=== PATIENT | female | born 1965 | race Caucasian/White ===

== ENCOUNTER → 2017-07-17 | Outpatient (CLI) | payer MEDICARE, OTHER ==
[~2017-07-17] MED LIST: ALB6.7R INH; BACL-1 PO; BACL-51 PO; BLOO-1037 MC; BLOO-960 MC; BUPR-472 PO; CEPH500C24 PO; CHOL100058 PO; CYAN25007 SL; DIAZ-311 PO; DILAUDID PUMP; FURO20TA19 PO; HYDR-5517 PO; HYDR2TAB74 PO; LANC-608 MC; LISI-362 PO; METF-410 PO; METF10002 PO; OMEP40CA48 PO; ONDA4TAB PO; ROSU20TA13 PO; SIMV-49 PO; SITA50TA6 PO; SPIR25TA76 PO; SULF-198 PO; URSO500T7 PO
[2017-07-17 14:11] LABS: PLATELET COUNT, AUTOMATED 180 K/uL (150-450)
[2017-07-17 14:21] LABS: INR 1.07
== END ==
LOC: LAB 13:25
PROVIDERS: ATTEND Emergency Medicine
DX: K74.60 Unspecified cirrhosis of liver (principal); K76.9 Liver disease, unspecified
CPT/HCPCS: 36415; 82040; 82247; 82310; 82374; 82435; 82565; 82784; 82947; 83516; 84075; 84132; 84155; 84295; 84450; 84460; 84520; 85025; 85610; 86301

== ENCOUNTER → 2017-07-23 | Outpatient (CLI) | payer MEDICARE, OTHER | LOC: US 00:39 | PROVIDERS: ATTEND Emergency Medicine | DX: Z02.9 Encounter for administrative examinations, unspecified (principal) ==

== ENCOUNTER → 2017-07-31 | Outpatient (CLI) | payer MEDICARE, OTHER ==
--- NOTE | 2017-07-31 16:25 | RADIOLOGY IMAGING REPORT ---
FACILITY: [facility] PATIENT NAME: Marzena Eckert : 1965 MR: [id number] V: [id number] EXAM DATE: ORDERING PHYSICIAN: BIGG NELSON TECHNOLOGIST: Location: [facility] Patient: Marzena Eckert : 1965 Visit/Account:[id number] Date of Sevice: 07/31/2017 THYROID HISTORY: Thyroid nodule COMPARISON: None. FINDINGS: SIZE: Right lobe: 5.6 x 1.6 x 1.3 cm Left lobe: 5.1 x 1.9 x 2 cm Isthmus: 5 mm PARENCHYMA: Homogeneous. NODULES: Right lobe: * There is a well-circumscribed isoechoic nodule inferior aspect right lobe measuring 8 mm in diamet er Left lobe: * In the mid left lobe there is a slightly lobular slightly complex nodule measuring 1.9 x 1.8 x 1.8 cm. In the inferior left lobe there is a solid well-circumscribed slightly spongiform nodule measur ing 1.1 cm in diameter. In the superior left lobe is a slightly lobular slightly complex nodule kirsty uring 1.4 cm in diameter Isthmus: * None discrete. VASCULARITY: Within normal limits. ADDITIONAL FINDINGS: None. IMPRESSION: There are two solid nodules in the left lobe one measuring 1.9 smears in diameter one measuring 1.4 c enters in diameter for which ultrasound-guided fine-needle aspiration is recommended REFERENCE: 2015 [place] [employer] Management Guidelines for Adult Patients with Thyroid Nodules and D ifferentiated Thyroid Cancer: The [place] [employer] Guidelines Task Force on Thyroid Nodul es and Differentiated Thyroid Cancer. SONOGRAPHIC PATTERNS: * Benign: Purely cystic nodules (no solid component); estimated risk of malignancy <1 percent; no bi opsy recommended. * Very Low Suspicion: Spongiform or partially cystic nodules without any of the sonographic features described in low, intermediate, or high suspicion patterns; estimated risk of malignancy <3 percent; consider FNA at > 2 cm (Observation without FNA is also a reasonable option). * Low Suspicion: Isoechoic or hyperechoic solid nodule, or partially cystic nodule with eccentric so lid areas, without microcalcification, irregular margin or ETE (extra-thyroidal extension), or taller than wide shape; estimated risk of malignancy 5-10 percent; recommend FNA at >1.5 cm. * Intermediate Suspicion: Hypoechoic solid nodule with smooth margins without microcalcifications, E TE (extra-thyroidal extension), or taller than wide shape; estimated risk of malignancy 10-20 percent ; recommend FNA at > 1 cm. * High Suspicion: Solid hypoechoic nodule or solid hypoechoic component of a partially cystic nodule with one or more of the following features: irregular margins (infiltrative, microlobulated), microc alcifications, taller than wide shape, rim calcifications with small extrusive soft tissue component, evidence of ETE (extra-thyroidal extension); estimated risk of malignancy >70-90 percent; recommend FNA at > 1 cm. NOTES: * Although a sonographically suspicious subcentimeter thyroid nodule without evidence of extrathyroi freddy extension or sonographically suspicious lymph nodes may be observed with close sonographic follow -up rather than pursuing immediate FNA, patient age and preference may modify decision-making. A > 50% interval increase in nodule volume and/or development of new suspicious sonographic features are felt to be a valid reasons for potential re-aspiration of a nodule previously shown to have benig n FNA cytology. Report Dictated By: Chary Gavin MD at 07/31/2017 4:18 PM Report E-Signed By: Chary Gavin MD at 07/31/2017 4:21 PM WSN:[email or web address]
== END ==
LOC: US 01:26
PROVIDERS: ATTEND Emergency Medicine
DX: E04.1 Nontoxic single thyroid nodule (principal)
CPT/HCPCS: 76536

== ENCOUNTER → 2017-08-01 | Outpatient (CLI) | payer MEDICARE, OTHER ==
[~2017-08-01] MED LIST changes: +DIA5 PO
== END ==
LOC: RESP 21:12
PROVIDERS: ATTEND Emergency Medicine
DX: G47.19 Other hypersomnia (principal); G47.33 Obstructive sleep apnea (adult) (pediatric); G47.36 Sleep related hypoventilation in conditions classified elsewhere; E66.9 Obesity, unspecified

== ENCOUNTER → 2017-08-10 | Outpatient (CLI) | payer MEDICARE, OTHER ==
[2017-08-10 10:33] LABS: INR 1.03
--- NOTE | 2017-08-10 14:54 | RADIOLOGY IMAGING REPORT ---
FACILITY: [facility] PATIENT NAME: Marzena Eckert : 1965 MR: [id number] V: [id number] EXAM DATE: ORDERING PHYSICIAN: BIGG NELSON TECHNOLOGIST: Location: [facility] [place] Patient: Marzena Eckert : 1965 Visit/Account:[id number] Date of Sevice: 08/10/2017 Exam type: THYROID BIOPSY FINE NEEDLE ASP History: 2 thyroid nodules Comparison: Thyroid ultrasound July 31, 2017. Findings: Informed consent was obtained. Left side of the patient's neck was prepped and draped in usual steri le fashion. Local anesthesia was accomplished with 1% lidocaine. Under sonographic guidance three 2 5-gauge FNA biopsies were obtained through the nodule in the mid left lobe the thyroid gland. Sample s were given to the pathology laboratory technologist for processing. One 25-gauge FNA biopsy was obtained thro ugh the inferior left thyroid nodule and given to the pathology laboratory technologist for processing. The pat ient refused further biopsies. IMPRESSION: 1. Sonographically guided FNA biopsies of two left thyroid nodules Report Dictated By: Chary Gavin MD at 08/10/2017 2:47 PM Report E-Signed By: Chary Gavin MD at 08/10/2017 2:49 PM WSN:[email or web address]
== END ==
LOC: US 02:47
PROVIDERS: ATTEND Emergency Medicine
DX: E04.9 Nontoxic goiter, unspecified (principal); K75.81 Nonalcoholic steatohepatitis (NASH)
CPT/HCPCS: 10022; 36415; 76942; 85610; 85730; 88104; 88172

== ENCOUNTER → 2017-08-22 | Outpatient (CLI) | payer MEDICARE, OTHER ==
[~2017-08-22] MED LIST changes: +LACT10PA2 PO; +SITA100T PO
== END ==
LOC: RESP 21:27
PROVIDERS: ATTEND Emergency Medicine
DX: G47.33 Obstructive sleep apnea (adult) (pediatric) (principal); G47.36 Sleep related hypoventilation in conditions classified elsewhere; E66.9 Obesity, unspecified